=== PATIENT | male | born 1960 | race Caucasian/White ===

== ENCOUNTER 2020-06-09 10:23 | Emergency (ER) | payer OTHER, SELFPAY ==
--- NOTE | ~2020-06-09 | CT_ITS ---
EXAMINATION: CT facial bones w con DATE: 06/09/2020 12:55 INDICATION: Forehead cellulitis. TECHNIQUE: Computed tomography (CT) of the facial bones and maxillofacial region was performed with 7 5 mL Omnipaque 350 intravenous contrast. Automated exposure control and iterative reconstruction tech [employer] were employed. The dose-length product was 327.82 mGy-cm. COMPARISON: CT sinuses 03/09/2013 FINDINGS: There is soft tissue swelling of the forehead. The orbits are normal. There are no patholog ically enlarged lymph nodes. There is mild mucosal thickening in the paranasal sinuses. There is mild leftward deviation of the nasal septum. IMPRESSION: 1. Soft tissue swelling of the forehead. Reviewed, dictated and finalized at location A. [employer]
[2020-06-09 10:33] VITALS: BP 96/65; PULSE 80; RESP 18; TEMP 36.3; O2SAT 100
--- NOTE | 2020-06-09 10:36 | ED.SKABFB ---
HPI - Skin/Abscess/Foreign Bdy General Chief complaint: Skin/Abscess/Foreign Body Stated complaint: fever, redness to forehead Time Seen by Provider: 06/09/20 10:36 History of Present Illness HPI narrative: 59 yo male w/ h/o htn presnets to the ED for facial swelling. Swelling started suddenly on his forehead overnight. Seemed to be centered around a zit/bump on his forehead. Quiclky spread to the side of his face. This was associated with fever up to 102 and facial pain. No sinus pressure, vision ac, pain with eye movmeent, ear pain, sore throat, cough, congestion. Related Data Allergies Allergy/AdvReac Type Severity Reaction Status Date / Time Penicillins Allergy Mild Verified 08/07/18 12:14 Review of Systems Review of Systems: All systems reviewed & are unremarkable except as noted in HPI and below Constitutional: Constitutional: Reports fever(s) and Denies weakness Eyes: Eyes: Reports no additional eye complaints ENT: Denies vertigo, Denies dizziness, Denies nasal congestion and Denies sore throat Cardiovascular: Cardiovascular: Denies chest pain Respiratory: Respiratory: Denies cough and Denies dyspnea Gastrointestinal: Gastrointestinal: Denies abdominal pain and Denies nausea Genitourinary: Genitourinary: Denies dysuria Musculoskeletal: Musculoskeletal: Denies back pain and Denies myalgias Neurologic: Denies confusion, Denies dizziness and Denies weakness [facility] Past Medical History Medical History (Updated 06/10/20 @ 12:12 by Gerson Mena MD) Hypercholesterolemia Social History Social History (Updated 06/10/20 @ 12:13 by Gerson Mena MD) Smoking status: Current every day smoker Gender identity (if verbalized by the patient): Male Exam Const: General: healthy appearing, no acute distress and alert Orientation/consciousness: patient oriented x3 HENMT: Ears: TM's normal bilaterally and EAC's normal General nose exam: Normal external nose present Face and sinus: no sinus tenderness Mouth: Yes Normal oral and palatal mucosa present Teeth and gingiva: dentition normal Other: erythema and induration forehead and left cheek. Largely sparing periorbital region. No mastoid tenderness Eyes: Conjunctivae: conjunctivae normal Pupils: Equal, round and reactive pupils present EOM: EOMs intact bilaterally Direct Ophthalmoscopy: no photophobia Neck: Neck: normal visual inspection and no lymphadenopathy Chest: Chest palpation & inspection: no tenderness Resp: Effort & Inspection: normal respiratory effort Auscultation: clear to auscultation bilaterally, no rales, no rhonchi and no wheezes Cardio: Jugular venous distension: no JVD Rate: regular rate Rhythm: regular rhythm Heart sounds: no murmurs GI: Inspection: non-distended GI Palp: Yes Soft to palpation and No Tenderness to palpation present (GI) Skin: General skin exam: normal color Neuro: General: patient oriented x3, moves all extremities, no focal motor deficits and CN's II-XI intact bilaterally Speech: normal speech Gait exam (Neuro): Normal gait present Extrem: General: no edema Psych: Appearance: well kempt Affect: normal affect Course Vital Signs Vital signs: Vital Signs Temperature 36.3 C L 06/09/20 10:33 Pulse Rate 80 06/09/20 10:33 Respiratory Rate 18 06/09/20 10:33 Blood Pressure 96/65 L 06/09/20 10:33 Pulse Oximetry 100 06/09/20 10:33 Temperature 38.4 C H 06/09/20 14:10 Pulse Rate 74 06/09/20 14:10 Respiratory Rate 18 06/09/20 14:10 Blood Pressure 127/89 06/09/20 14:10 Pulse Oximetry 99 06/09/20 14:10 MDM - Skin/Abscess/Foreign Bdy Differential Diagnosis Differential diagnosis: Likely cellulitis and other (orbital cellulitis, sinusitis, other) Medical Records Attestation: I reviewed the patient's medical records. Lab Data Attestation: I reviewed the patient's lab results. Result diagrams: 06/09/20 11:10 06/09/20 11:10 Labs: La
[2020-06-09] MEDS: CLINDAMYCIN 600 MG/NS 50 ML 600 MG/50 ML PIGGYBACK 100 MG IVPB (11:05)
[2020-06-09 11:21] LABS: Basophils Percent Auto 0.2 % (0.2-1.2); Eosinophils Absolute Auto 0.1 K/mm3 (0-0.3); Eosinophils Percent Auto 0.8 % (0-4.4); Hematocrit 40.6 % (42.0-52.0); Hemoglobin 13.6 g/dL (14.0-18.0); Immature Granulocyte Absolute 0.02 K/mm3 (0.00-0.031); Immature Granulocyte Percent A 0.2 % (0-0.5); Lymphocytes Absolute Auto 1.42 K/mm3 (0.9-3.2); Lymphocytes Percent Auto 15.7 % (18.3-44.2); Mean Corpuscular HGB Conc 33.5 g/dl (32-36); Mean Corpuscular Hemoglobin 32.9 pg (26-34); Mean Corpuscular Volume 98.1 fl (80-100); Mean Platelet Volume 10.2 fl (7.4-10.4); Monocytes Absolute Auto 0.7 K/mm3 (0.1-0.6); Monocytes Percent Auto 7.6 % (2.6-8.5); Neutrophils Absolute Auto 6.9 K/mm3 (1.3-6.7); Neutrophils Percent Auto 75.5 % (45.5-73.1); Platelet Count Result 166 k/mm3 (150-375); Red Blood Count 4.14 M/mm3 (4.6-6.20); White Blood Count 9.1 K/mm3 (4.5-10.0)
[2020-06-09 11:30] LABS: INR 1.1; Prothrombin Time 14.6 Seconds (11.1-14.7)
[2020-06-09 11:31] LABS: Partial Thromboplastin Time 28.5 SECONDS (22.3-36.8)
[2020-06-09 11:34] LABS: Alanine Aminotransferase 17 U/L (4-50); Albumin Level 3.7 g/dL (3.5-5.1); Alkaline Phosphatase 54 U/L (38-126); Anion Gap 1 mmol/L (8-16); Aspartate Amino Transferase 21 U/L (17-59); Bilirubin,Total 0.5 mg/dL (0.2-1.3); Blood Urea Nitrogen 13 mg/dL (9-20); Carbon Dioxide 30 mmol/L (22-30); Chloride 106 mmol/L (98-107); Estimated CRCL calculation 67 ml/min; Estimated Glomerular Filt Rate 56; Glucose 101 mg/dL (75-110); Sodium 137 mmol/L (137-145)
[2020-06-09 14:10] VITALS: BP 127/89; PULSE 74; RESP 18; TEMP 38.4; O2SAT 99
== END 2020-06-09 14:12 | disposition home or self-care (01) ==
PROVIDERS: Emergency Provider Emergency Medicine; PCP Internal Medicine
DX: L03.211 Cellulitis of face (principal); E78.00 Pure hypercholesterolemia, unspecified
CPT/HCPCS: 36415; 70487; 80053; 83605; 85025; 85610; 85730; 87040; 96365; 99284; Q9967

== ENCOUNTER 2020-06-11 10:58 | Emergency (ER) | payer OTHER, SELFPAY ==
[2020-06-11 11:04] VITALS: BP 161/75; PULSE 69; RESP 18; TEMP 36.1; O2SAT 100
[2020-06-11 11:56] LABS: Basophils Percent Auto 0.4 % (0.2-1.2); Eosinophils Absolute Auto 0.5 K/mm3 (0-0.3); Eosinophils Percent Auto 6.6 % (0-4.4); Hematocrit 37.9 % (42.0-52.0); Hemoglobin 13.1 g/dL (14.0-18.0); Immature Granulocyte Absolute 0.01 K/mm3 (0.00-0.031); Immature Granulocyte Percent A 0.1 % (0-0.5); Lymphocytes Absolute Auto 2.33 K/mm3 (0.9-3.2); Lymphocytes Percent Auto 29.1 % (18.3-44.2); Mean Corpuscular HGB Conc 34.6 g/dl (32-36); Mean Corpuscular Hemoglobin 33.2 pg (26-34); Mean Corpuscular Volume 96.2 fl (80-100); Mean Platelet Volume 10.7 fl (7.4-10.4); Monocytes Absolute Auto 0.8 K/mm3 (0.1-0.6); Monocytes Percent Auto 10.1 % (2.6-8.5); Neutrophils Absolute Auto 4.3 K/mm3 (1.3-6.7); Neutrophils Percent Auto 53.7 % (45.5-73.1); Platelet Count Result 186 k/mm3 (150-375); Red Blood Count 3.94 M/mm3 (4.6-6.20)
[2020-06-11 12:07] LABS: Alanine Aminotransferase 21 U/L (4-50); Albumin Level 3.8 g/dL (3.5-5.1); Alkaline Phosphatase 54 U/L (38-126); Anion Gap 4 mmol/L (8-16); Aspartate Amino Transferase 25 U/L (17-59); Bilirubin,Total 0.3 mg/dL (0.2-1.3); Blood Urea Nitrogen 10 mg/dL (9-20); Calcium 8.9 mg/dL (8.4-10.2); Carbon Dioxide 28 mmol/L (22-30); Chloride 106 mmol/L (98-107); Estimated CRCL calculation 79 ml/min; Estimated Glomerular Filt Rate > 60; Glucose 122 mg/dL (75-110); Potassium 3.8 mmol/L (3.4-5.0); Sodium 138 mmol/L (137-145)
--- NOTE | 2020-06-11 12:16 | ED.GENADULT ---
HPI - General Adult General Chief complaint: Skin/Abscess/Foreign Body <Liss Tran PA-C - Last Filed: 06/11/20 12:41> Stated complaint: Facial Cellulitis <Liss Tran PA-C - Last Filed: 06/11/20 12:41> Time Seen by Provider: 06/11/20 11:28 <Liss Tran PA-C - Last Filed: 06/11/20 12:41> Related Data Home medications: Home Medications Medication Instructions Recorded Confirmed meloxicam 06/11/20 <Liss Tran PA-C - Last Filed: 06/11/20 12:41> Allergies/adverse reactions: Allergies Allergy/AdvReac Type Severity Reaction Status Date / Time Penicillins Allergy Mild Hives Verified 06/11/20 11:08 <Liss Tran PA-C - Last Filed: 06/11/20 12:41> Review of Systems Review of Systems: Narrative: CONSTITUTIONAL: Denies fever, chills, or sweats. EYES: Denies visual changes, redness, or discharge. ENT: Denies rhinorrhea, congestion, sore throat, or otalgia. CARDIOVASCULAR: Denies chest pain, palpitations, or edema. RESPIRATORY: Denies cough or dyspnea. GASTROINTESTINAL: Denies abdominal pain, nausea, vomiting, or diarrhea. GENITOURINARY: Denies dysuria or hematuria. SKIN: Reports rash and erythema MUSCULOSKELETAL: Denies back pain, joint pain, or myalgia. NEUROLOGIC: Denies headache, numbness, dizziness, or weakness. PSYCHIATRIC: Denies anxiety or depression. <Liss Tran PA-C - Last Filed: 06/11/20 12:41> FORMERLY [facility], [facility]–1983 Past Medical History Medical History: Medical History (Updated 06/11/20 @ 12:18 by Liss Tran PA-C) Hypercholesterolemia <Liss Tran PA-C - Last Filed: 06/11/20 12:41> Social History Social History: Social History (Updated 06/10/20 @ 12:13 by Gerson Mena MD) Smoking status: Current every day smoker Gender identity (if verbalized by the patient): Male <Liss Tran PA-C - Last Filed: 06/11/20 12:41> Exam Narrative: Exam Narrative: GENERAL: Well-appearing, well-nourished, and in no acute distress. HEAD: Normocephalic, atraumatic. EYES: PERRLA and EOMI. ENT: Nares clear, no rhinorrhea or epistaxis. Mucous membranes moist. Oropharynx without tonsillar hypertrophy exudate or other lesions. Bilateral TMs pearly kruse nonbulging NECK: Supple. No adenopathy or masses. No carotid bruits or JVD CHEST: Clear to auscultation. No respiratory distress. No wheezes rales or rhonchi HEART: Regular rate and rhythm. No murmur heard. Normal peripheral pulses. ABDOMEN: Soft, nontender, nondistended, normal active bowel sounds. EXTREMITIES: Normal range of motion. No edema. SKIN: Flat erythematous rash with minimal increased warmth to forehead. There appears to be gravitational swelling down nose. No sign of abscess or fluctuance. Does not appear vesicular and does cross dermatomal line. Warm, dry, no rash. NEURO: No focal deficits. Alert and oriented x3. PSYCH: Normal mood and affect. <Liss Tran PA-C - Last Filed: 06/11/20 12:41> Course Vital Signs Vital signs: Vital Signs Temperature 96.9 F L 06/11/20 11:04 Pulse Rate 06/11/20 11:04 Respiratory Rate 06/11/20 11:04 Blood Pressure 161/75 H 06/11/20 11:04 Pulse Oximetry 100 06/11/20 11:04 Temperature 96.9 F L 06/11/20 11:04 Pulse Rate 06/11/20 11:04 Respiratory Rate 06/11/20 11:04 Blood Pressure 161/75 H 06/11/20 11:04 Pulse Oximetry 06/11/20 11:04 <Liss Tran PA-C - Last Filed: 06/11/20 12:41> Vital Signs Temperature 96.9 F L 06/11/20 11:04 Pulse Rate 06/11/20 11:04 Respiratory Rate 18 06/11/20 11:04 Blood Pressure 161/75 H 06/11/20 11:04 Pulse Oximetry 06/11/20 11:04 Temperature 96.9 F L 06/11/20 11:04 Pulse Rate 69 06/11/20 11:04 Respiratory Rate 18 06/11/20 11:04 Blood Pressure 161/75 H 06/11/20 11:04 Pulse Oximetry 100 06/11/20 11:04 <Charlotte Myers MD - Last Filed: 06/11/20 17:49> Medical Decision Making MDM Narrative Medical decision making
== END 2020-06-11 13:00 | disposition home or self-care (01) ==
PROVIDERS: Physician Assistant; Emergency Provider General Practice; PCP Internal Medicine
DX: L30.9 Dermatitis, unspecified (principal); E78.00 Pure hypercholesterolemia, unspecified; F17.200 Nicotine dependence, unspecified, uncomplicated
CPT/HCPCS: 36415; 80053; 85025; 99283

== ENCOUNTER → 2020-06-25 09:38 | Outpatient (CLI) | payer OTHER, SELFPAY ==
[2020-06-25 19:49] LABS: SARS-CoV-2 RNA PCR Negative
== END ==
PROVIDERS: PCP Internal Medicine; Visit Provider Internal Medicine Gastroenterology
DX: Z01.812 Encounter for preprocedural laboratory examination (principal); Z20.822 Contact with and (suspected) exposure to COVID-19
CPT/HCPCS: C9803; U0003; U0005

== ENCOUNTER 2021-01-13 03:09 | Day surgery (SDC) | payer OTHER, SELFPAY ==
[2021-01-04 15:31] VITALS: BMI 29.5
[2021-01-13 07:45] VITALS: BP 140/77; PULSE 55; RESP 20; TEMP 35.7; O2SAT 99; BMI 29.0
[2021-01-13] MEDS: LACTATED RINGERS 1,000 ML 150 ML IV CONT (08:00)
--- NOTE | 2021-01-13 08:06 | WPDANESEPPF ---
Anes - Initial Pre Proc Eval Procedure: Operation Date: 01/13/21 08:30 Proposed Procedures p Screening Colonoscopy - Timmy Saldaña MD Date/Time: 01/13/21 08:06 Surgeon: Timmy Saldaña MD Pre Op Diagnosis: neoplasm screening Patient Data Age: 60 Gender: M Height: 1.96 m Weight: 111 kg Last Vital Signs Temp 96.2 F L 01/13/21 07:45 Pulse 55 L 01/13/21 07:45 Resp 20 01/13/21 07:45 BP 140/77 01/13/21 07:45 Pulse Ox 99 01/13/21 07:45 Allergies Allergy/AdvReac Type Severity Reaction Status Date / Time Penicillins Allergy Mild Hives Verified 01/13/21 07:44 Home Medications Medication Instructions Recorded Confirmed Type meloxicam 7.5 mg PO DAILY 06/11/20 01/04/21 History Beet 4 g PO DAILY 01/04/21 01/04/21 History Burgamot 1,000 mg PO DAILY 01/04/21 01/04/21 History cholecalciferol (vitamin D3) 250 mcg PO DAILY 01/04/21 01/04/21 History fexofenadine [Belle] 30 mg PO DAILY 01/04/21 01/04/21 History soswzbtrvfv-vucyunihb-nukinrmk 1 inh INHALATION DAILY 01/04/21 01/04/21 History [Trelegy Ellipta] garlic 1,200 mg PO DAILY 01/04/21 01/04/21 History mv,Ca,psh-lozi-ZB-lycopene 1 tablet PO DAILY 01/04/21 01/04/21 History [Centrum Men] nicotine 14 mg TRANSDERMAL DAILY 01/04/21 01/04/21 History omega 7-mvb-tjk-fish oil [Fish Oil] 2 cap PO DAILY 01/04/21 01/04/21 History trazodone 50 mg PO HS 01/04/21 01/04/21 History turmeric 400 mg PO DAILY 01/04/21 01/04/21 History Patient hx anesthesia problems: none Family hx anesthesia problems: none PMFSH Past Medical History Medical History (Updated 06/12/20 @ 00:00 by Radhames Paz) Hypercholesterolemia Social History Social History (Updated 06/10/20 @ 12:13 by Gerson Mena MD) Smoking packs per day: 1 Smoking cigarettes per day: 20.0 Years smoked: 40 Smoking pack-years: 40.00 Smoking status: Current every day smoker Tobacco type: cigarettes Alcohol intake: current Drinks per week: 5 Substance use: current Substance use type: marijuana Last use: 01/04/2021 Living arrangements: alone Gender identity (if verbalized by the patient): Male Spiritual care concerns: No Anes - Eval Final PreProcedure Day of Procedure 01/13/21 08:06 Patient weight: obese Heart: regular rate and rhythm Lungs: clear to auscultation Airway: Mallampati scale class II Neurological: alert and oriented Last oral intake: >/= 8 hours ASA classification: III Emergent: no Anesthetic plan: proceed Anesthesia type and monitoring: general GIVS and standard monitoring Informed Consent: The patient's anesthetic plan and its attendant risks and benefits were discussed with the patient/family/POA. Questions were solicited and answers provided to the satisfaction of the patient/family/POA.
--- NOTE | 2021-01-13 08:24 | P.CONGI_ITS ---
Assessment and Plan Assessment and plan (1) History of colon polyps: Code(s): Z86.010 - Personal history of colonic polyps Status: Acute Assessment and Plan: Patient has a history of adenomatous colon polyp removed in 2017. Plan is for surveillance colonoscopy at this time and consider follow-up exam in 5 years. GI Consult Note Consult date/time: 01/13/21 08:24 HPI: Major Patel is a 60 year old male Presents for screening colonoscopy. Patient has a history of colon polyps in 2017 in adenoma was resected colonoscopy performed by Dr. Kuhn. Patient presents today for follow- up examination. He reports that his current weight appetite bowel movements are normal. Patient denies abdominal pain. He has had no bleeding. Family history is noncontributory. Review of Systems Review of Systems: All systems reviewed & are unremarkable except as noted in HPI and below PMFSH Past Medical History Medical History (Updated 01/13/21 @ 08:26 by Timmy Saldaña MD) Hypercholesterolemia Social History Social History (Updated 06/10/20 @ 12:13 by Gerson Mena MD) Smoking packs per day: 1 Smoking cigarettes per day: 20.0 Years smoked: 40 Smoking pack-years: 40.00 Smoking status: Current every day smoker Tobacco type: cigarettes Alcohol intake: current Drinks per week: 5 Substance use: current Substance use type: marijuana Last use: 01/04/2021 Living arrangements: alone Gender identity (if verbalized by the patient): Male Spiritual care concerns: No Meds Home Medications and Allergies Home Medications Medication Instructions Recorded Confirmed Type meloxicam 7.5 mg PO DAILY 06/11/20 01/04/21 History Beet 4 g PO DAILY 01/04/21 01/04/21 History Burgamot 1,000 mg PO DAILY 01/04/21 01/04/21 History cholecalciferol (vitamin D3) 250 mcg PO DAILY 01/04/21 01/04/21 History fexofenadine [Belle] 30 mg PO DAILY 01/04/21 01/04/21 History pglzhhgpvro-zsownjock-uyfgtlct 1 inh INHALATION DAILY 01/04/21 01/04/21 History [Trelegy Ellipta] garlic 1,200 mg PO DAILY 01/04/21 01/04/21 History mv,Ca,uqc-toem-TL-lycopene 1 tablet PO DAILY 01/04/21 01/04/21 History [Centrum Men] nicotine 14 mg TRANSDERMAL DAILY 01/04/21 01/04/21 History omega 6-wzg-ulu-fish oil [Fish Oil] 2 cap PO DAILY 01/04/21 01/04/21 History trazodone 50 mg PO HS 01/04/21 01/04/21 History turmeric 400 mg PO DAILY 01/04/21 01/04/21 History Allergies Allergy/AdvReac Type Severity Reaction Status Date / Time Penicillins Allergy Mild Hives Verified 01/13/21 07:44 Vital Signs Vital Signs - 24 hr 01/13/21 07:45 Temperature 96.2 F L Pulse Rate 55 L Respiratory Rate 20 Blood Pressure 140/77 Pulse Oximetry 99 Exam Narrative: Physical exam reveals patient to be alert. Vital signs stable. HEENT exam is unremarkable. Patient is anicteric. Lungs are clear to auscultation and percussion. Heart is without murmur or extra sounds. Abdomina l exam bowel sounds are present soft nontender with no organomegaly. Digital external rectal exam is normal.
[2021-01-13 08:59] VITALS: BP 100/70; PULSE 50; RESP 29; O2SAT 99
[2021-01-13 09:09] VITALS: BP 119/69; PULSE 47; RESP 29; O2SAT 98
[2021-01-13 09:19] VITALS: BP 121/83; PULSE 47; RESP 16; O2SAT 98
== END 2021-01-13 09:54 | disposition home or self-care (01) ==
PROVIDERS: PCP Internal Medicine; Visit Provider Internal Medicine Gastroenterology
PROC: 0DJD8ZZ Inspection of Lower Intestinal Tract, Via Natural or Artificial Opening Endoscopic (ICD-10-PCS; CPT 45378; principal; 2021-01-13 08:30)
DX: Z12.11 Encounter for screening for malignant neoplasm of colon (principal); K63.5 Polyp of colon; K57.30 Diverticulosis of large intestine without perforation or abscess without bleeding; K64.8 Other hemorrhoids; F17.210 Nicotine dependence, cigarettes, uncomplicated
CPT/HCPCS: 45385; 88305; J2704; J7120